=== PATIENT | male | born 1975 | race Caucasian/White ===

== ENCOUNTER 2017-02-21 20:01 | Emergency (ER) | payer OTHER ==
[~2017-02-21] VITALS: Ht 175.3 cm; Wt 95.5 kg
[2017-02-21] MEDS ORDERED: PROAAER10 INH (20:27)
[2017-02-21] MEDS ORDERED: CYCL10TA PO (22:11)
[2017-02-21] MEDS ORDERED: IBUP-1022 PO (22:11)
[2017-02-21] MEDS ORDERED: diazePAM 5 MG TAB PO ONE (22:15)
[2017-02-21] MEDS ORDERED: KETOROLAC 60 MG/2 ML VIAL (J1885) IM ONE (22:15)
[2017-02-21 22:53] VITALS: BP 142/84
== END 2017-02-21 22:54 | disposition home or self-care (01) ==
LOC: M ED 20:01
DX: S39.012A Strain of muscle, fascia and tendon of lower back, initial encounter (principal); X50.9XXA Other and unspecified overexertion or strenuous movements or postures, initial encounter; Y92.89 Other specified places as the place of occurrence of the external cause; Y93.89 Activity, other specified; Y99.8 Other external cause status; J45.909 Unspecified asthma, uncomplicated; Z79.899 Other long term (current) drug therapy; Z91.013 Allergy to seafood
CPT/HCPCS: 96372; 99282; J1885